=== PATIENT | male | born 1935 | race Caucasian/White ===

== ENCOUNTER 2017-02-28 11:32 | Emergency (ER) | payer OTHER ==
[2017-02-28 11:45] VITALS: BP 162/81; PULSE 73; RESP 18; TEMP 97.3; O2SAT 95
--- NOTE | 2017-02-28 12:31 | UCPHY ---
H & P Time Seen by Provider: 02/28/17 11:44 Patient Type: New HPI/ROS: CHIEF COMPLAINT: Left great toe pain HPI: The patient is a 81-year-old male with a history of gout. He complains of gradual increase in pain to the 1st metatarsophalangeal joint on his left foot over the last week, which became very severe last night. He denies acute trauma. Pain is severe when lying in bed. He denies fever. He states this does not feel like his prior gout attack. He is no longer on gout medication. REVIEW OF SYSTEMS: Aside from elements discussed in the HPI, a comprehensive 10-point review of systems was reviewed and is negative. PMH: Gout SOCIAL HISTORY: Patient lives in [place]. Retired. FAMILY HISTORY: Reviewed, noncontributory PHYSICAL EXAM: General:Patient is alert, in no acute distress. Extremities: Left foot: Normal appearance. Full range of motion. There is tenderness throughout the plantar aspect of the 1st metatarsophalangeal joint. Interphalangeal joint is nontender and non erythematous. Neuro: Oriented x3. Normal motor function. Normal sensory function. Smoking Status: Never smoked Constitutional: Initial Vital Signs Temperature (C) 36.3 C 02/28/17 11:42 Heart Rate 73 02/28/17 11:42 Respiratory Rate 18 02/28/17 11:42 Blood Pressure 162/81 H 02/28/17 11:42 O2 Sat (%) 95 02/28/17 11:42 O2 Delivery Mode Room Air Allergies/Adverse Reactions: No Known Allergies Allergy (Verified 02/28/17 11:42) Home Medications: Medication Instructions Recorded Simvastatin 11/05/13 Colchicine [Colchicine (*)] 0.6 mg PO BID #14 tab 02/28/17 HCTZ (*) 02/28/17 Lisinopril 02/28/17 Naproxen 500 mg PO BID #20 tablet 02/28/17 MDM/Departure - [facility] ED Course/Re-evaluation: This patient presents with 1st metatarsophalangeal joint pain which is either secondary to osteoarthritis or potentially gouty arthritis or potentially contusion. Since the patient does have a history of gout, I discussed options with him and will start him on both allopurinol as well as naproxen which should cover all 3 possibilities. I see no evidence of infection or fracture. - Depart Disposition: Home, Routine, Self-Care Clinical Impression: Toe pain Condition: Good Instructions: Gout (ED) Additional Instructions: Rest, ice, elevation. Follow up with your primary physician within 2 weeks for re-evaluation. Return to the emergency department for severe pain, worsening swelling or other concerns. Prescriptions: Colchicine [Colchicine (*)] 0.6 mg PO BID #14 tab Naproxen 500 mg PO BID #20 tablet Referrals: Ranjan Koehler MD [Primary Care Provider] - As per Instructions - PQRS PQRS Measurement: 134: Depression screening and followup, PRIME MD-PHQ2 (12 years and older) Over the last 2 weeks, how often have you been bothered by any of the following problems? 1. Feeling down, depressed, or hopeless? 2. Little interest or pleasure in doing things? Patient answered no to both 1 and 2 130: Documentation of medications. Reviewed all patient medications, doses, route and frequency. 226: Do you smoke? No. 51: 18 years old and older with diagnosis of COPD, spirometry performance. Spirometry not performed; equipment not available. Patient has no history of COPD 52: 18 years old and older with COPD and symptoms of COPD or FEV1<60% predicted prescribed a B Agonist. Spirometry not performed; equipment not available.
== END 2017-02-28 13:32 | disposition home or self-care (01) ==
LOC: CED 11:32
DX: M79.675 Pain in left toe(s) (principal); M10.9 Gout, unspecified
CPT/HCPCS: 73630; G0463